=== PATIENT | female | born 1960 | race Caucasian/White ===

== ENCOUNTER 2017-04-24 09:21 | Outpatient (CLI) | payer OTHER ==
--- NOTE | 2017-04-27 16:25 | Mammography Report ---
DIGITAL SCREENING MAMMOGRAM: 04/24/2017 CLINICAL INDICATION: A 56-year-old nulliparous patient, for screening. COMPARISON: 05/28/2015. TECHNIQUE: Routine CC and MLO projections were obtained of the breasts. Bilateral laterally exaggera sergio craniocaudal views. FINDINGS: The breasts again demonstrate heterogeneously dense fibroglandular parenchyma bilaterally. Punctate, typically benign calcifications are present. No suspicious masses, clustered microcalcific ations, or regions of architectural distortion are identified. IMPRESSION: BENIGN FINDINGS. RECOMMENDATION: ROUTINE ANNUAL SCREENING UNLESS OTHERWISE CLINICALLY INDICATED. BIRADS CATEGORY 2-BENIGN FINDINGS. STANDARD QUALIFYING STATEMENTS 1. This examination was reviewed with the aid of Computer-Aided Detection (CAD). 2. A negative or benign imaging report should not delay biopsy if clinically suspicious findings are present. Consider surgical consultation if warranted. More than 5% of cancers are not identified by i maging. 3. Dense breasts may obscure an underlying neoplasm. JOB #: [id number] EXT JOB #:[id number]
== END 2017-04-24 09:22 | disposition home or self-care (01) ==
LOC: DI 09:21
PROVIDERS: ATTEND Physician Assistant
DX: Z12.31 Encounter for screening mammogram for malignant neoplasm of breast (principal)
CPT/HCPCS: 77067

== ENCOUNTER 2017-05-19 21:20 | Emergency (ER) | payer OTHER ==
[2017-05-19 21:28] VITALS: BP 123/70
[2017-05-19 21:39] LABS: BILIRUBIN,URINE NEGATIVE (NEGATIVE)
--- NOTE | 2017-05-19 21:40 | ED Physician Documentation ---
PD HPI FEMALE - Stated complaint Stated Complaint: FEMALE - Chief complaint Chief Complaint: UTI - History obtained from History obtained from: Patient - History of Present Illness Timing - onset: Other (57-year-old woman with history of left nephrectomy, she was a donor presents with several hours worth of urinary frequency and burning and hematuria as well as discomfort but no flank pain or fevers.) Review of Systems Constitutional: denies: Fever, Chills GI: denies: Abdominal Pain, Nausea, Vomiting PD PAST MEDICAL HISTORY - Past Medical History Past Medical History: No - Past Surgical History Past Surgical History: Yes - Present Medications Home Medications: Ambulatory Orders Medication Instructions Recorded Confirmed Phenazopyridine HCl [Pyridium] 200 mg PO TID #6 tablet 05/19/17 Sulfamethoxazole/Trimethoprim 1 each PO BID 5 Days tablet 05/19/17 [Sulfamethoxazole-Tmp Ds Tablet] - Allergies Allergies/Adverse Reactions: Allergies Allergy/AdvReac Type Severity Reaction Status Date / Time NSAIDS (Non-Steroidal Allergy Anaphylaxis Verified 05/19/17 21:28 Anti-Inflamma - Social History Does the pt smoke?: No Smoking Status: Never smoker Does the pt drink ETOH?: Yes ETOH Use: Wine Does the pt have substance abuse?: No - Immunizations Immunizations are current?: Yes - POLST Patient has POLST: No PD ED PE NORMAL - Vitals Vital signs reviewed: Yes - General General: Alert and oriented X 3, No acute distress - Abdomen Abdomen: Soft, Non tender - Back Back: No CVA TTP - Neuro Neuro: Alert and oriented X 3, Normal speech Results - Vitals Vitals: Vital Signs - 24 hr 05/19/17 21:26 Temperature 36.2 C L Heart Rate 64 Respiratory 16 Rate Blood Pressure 123/70 O2 Saturation 99 Oxygen O2 Source Room air - Labs Labs: Laboratory Tests 05/19/17 21:34 Urine Color YELLOW Urine Clarity HAZY Urine pH 6.0 Ur Specific [place] >=1.030 H Urine Protein 100 H Urine Glucose (UA) NEGATIVE Urine Ketones TRACE Urine Occult Blood LARGE H Urine Nitrite NEGATIVE Urine Bilirubin NEGATIVE Urine Urobilinogen 0.2 (NORMAL) Ur Leukocyte Esterase SMALL H Urine RBC TNTC H Urine WBC >25 H Ur Squamous Epith Cells FEW Squamous Urine Bacteria Few Ur Microscopic Review INDICATED Urine Culture Comments INDICATED Departure - Departure Disposition: 01 Home, Self Care Clinical Impression: Cystitis Condition: Good Record reviewed to determine appropriate education?: Yes Instructions: ED UTI Cystitis Female Prescriptions: Phenazopyridine HCl [Pyridium] 200 mg PO TID #6 tablet Sulfamethoxazole/Trimethoprim [Sulfamethoxazole-Tmp Ds Tablet] 1 each PO BID 5 Days tablet Comments: We will culture your urine, the results should be done in 48-72 hours. If an antibiotic change is necessary we will call you. Return if worse in the meantime, especially if you develop increasing flank pain, fevers, or cannot keep down the medication.
[2017-05-19 21:43] LABS: UA w/ MICROSCOPIC CHARGE YES
[2017-05-19 21:46] LABS: WBC,URINE >25 /HPF (0-5)
[2017-05-19 21:47] LABS: UR CULTURE IF IND INDICATED
[2017-05-19] MEDS ORDERED: SULFAMETH/TRIMETH DS 800/160 MG TABLET PO STA (21:49)
[2017-05-19] MEDS ORDERED: PHENAZOPYRIDINE 100 MG TABLET PO STA (21:50)
[2017-05-19] MEDS ORDERED: SULFAMETH/TRIMETH DS 800/160 MG TABLET PO ONE (21:59)
[2017-05-19] MEDS ORDERED: PHENAZOPYRIDINE 100 MG TABLET PO ONE (21:59)
== END 2017-05-19 21:57 | disposition home or self-care (01) ==
LOC: ED 21:20
DX: N30.90 Cystitis, unspecified without hematuria (principal); Z90.5 Acquired absence of kidney
CPT/HCPCS: 81001; 87086; 99283; A9270; 81003

== ENCOUNTER 2018-05-17 09:51 | Outpatient (CLI) | payer OTHER ==
--- NOTE | 2018-05-18 09:13 | Mammography Report ---
Reason: SCREENING MAMMO Procedure Date: 05/17/2018 Accession Number: [id number] / [id number] Procedure: T[facility]MY - Screening Mammo w/Amaury CPT Code: FULL RESULT: EXAM: Screening Mammo w/Amaury DATE: 05/17/2018 12:36 PM CLINICAL HISTORY: 58 year-old nulliparous female with family history of breast cancer in an aunt above the age of 60 for screening. TECHNIQUE: Bilateral CC, laterally exaggerated CC, MLO views were obtained. COMPARISON: 04/24/2017, 06/21/2015, 05/28/2015. FINDINGS: The breasts demonstrate heterogeneously dense fibroglandular parenchyma bilaterally. No suspicious masses, clustered microcalcifications, or regions of architectural distortion are identified. IMPRESSION: Negative examination RECOMMENDATION: Routine annual screening unless otherwise clinically indicated. BIRADS CATEGORY 1: Negative STANDARD QUALIFYING STATEMENTS: 1. This examination was not reviewed with the aid of Computer-Aided Detection (CAD). 2. A negative or benign imaging report should not delay biopsy if clinically suspicious findings are present. Consider surgical consultation if warranted. More than 5% of cancers are not identified by imaging. 3. Dense breasts may obscure an underlying neoplasm. 4. This examination was reviewed with the aid of 3D breast imaging (tomosynthesis).
== END 2018-05-17 09:52 | disposition home or self-care (01) ==
LOC: DI 09:51
DX: Z12.31 Encounter for screening mammogram for malignant neoplasm of breast (principal); Z80.3 Family history of malignant neoplasm of breast
CPT/HCPCS: 77063; 77067